=== PATIENT | female | born 1970 | race Caucasian/White ===

== ENCOUNTER 2022-09-23 01:20 | Day surgery (SDC) | payer BC, SELFPAY ==
[2022-09-16 11:15] VITALS: BMI 31.4
--- NOTE | 2022-09-22 14:45 | PM.HPGS ---
History of Present Illness History of Present Illness Consent: Risks, benefits, and alternatives have been discussed and questions answered. Patient agrees to proceed with procedure. Chief complaint: rivera syndrome, neoplasm screening Narrative: Enmanuel Mayers is a 52 year old female who has a family history of Rivera syndrome she is due for colonoscopy. her mother is 1 of 6 siblings. All but 1 of them has had cancer a serious organs including uterus, brain, and colon. Also, her maternal grandfather had colon. She has been diagnosed with Rivera syndrome. Review of Systems Review of Systems: All systems reviewed & are unremarkable except as noted in HPI and below PMFSH Past Medical History Medical History Asthma Rivera syndrome Social History Social History Smoking status: Never smoker Alcohol intake: current Substance use: never Substance use type: does not use Living arrangements: with family Spiritual care concerns: No Meds Home Medications and Allergies Home Medications Medication Instructions Recorded Confirmed Type Adults Multivitamin 1 gummy PO DAILY 09/16/22 09/23/22 History Daily Probiotic 1 cap PO DAILY 09/16/22 09/23/22 History [place] 3 Fish Oil 1 cap PO DAILY 09/16/22 09/23/22 History albuterol sulfate 90 mcg/actuation 2 puff inhalation QID PRN 09/16/22 09/23/22 History aerosol inhaler Shortness Of Breath Or Wheezing biotin 5,000 mcg sublingual tablet 5,000 mcg sublingual DAILY 09/16/22 09/23/22 History bupropion HCl 150 mg 24 hr tablet, 150 mg PO DAILY 09/16/22 09/23/22 History extended release escitalopram oxalate 20 mg tablet 30 mg PO DAILY 09/16/22 09/23/22 History estradiol 1 mg tablet 1 mg PO DAILY 09/16/22 09/23/22 History methylcellulose (laxative) 500 mg 1,000 mg PO DAILY 09/16/22 09/23/22 History tablet (Citrucel) rizatriptan 25 mg PO PRN PRN Migraine Headache 09/16/22 09/23/22 History Allergies Allergy/AdvReac Type Severity Reaction Status Date / Time No Known Allergies Allergy Verified 09/23/22 11:17 Exam Const: General: alert Orientation/consciousness: patient oriented x3 Resp: Auscultation: clear to auscultation bilaterally Cardio: Rhythm: regular rhythm GI: GI Palp: Yes Soft to palpation and No Tenderness to palpation present (GI) Neuro: General: patient oriented x3 Assessment and Plan Assessment and plan (1) Colon cancer screening: Code(s): Z12.11 - Encounter for screening for malignant neoplasm of colon Status: Acute Assessment and Plan: Colonoscopy with possible biopsy or polypectomy or cautery or injection of substances.
[2022-09-23 11:18] VITALS: BP 146/91; PULSE 62; RESP 16; TEMP 36.3; O2SAT 100
--- NOTE | 2022-09-23 11:21 | WPDANESEPPF ---
Anes - Initial Pre Proc Eval Procedure: Operation Date: 09/23/22 12:30 Proposed Procedures p Screening Colonoscopy - Mario Whitfield MD Date/Time: 09/23/22 11:21 Surgeon: Mario Whitfield MD Pre Op Diagnosis: rivera syndrome, neoplasm screening Patient Data Age: 52 Gender: F Height: 1.75 m Weight: 96.5 kg Allergies Allergy/AdvReac Type Severity Reaction Status Date / Time No Known Allergies Allergy Verified 09/23/22 11:17 Home Medications Medication Instructions Recorded Confirmed Type Adults Multivitamin 1 gummy PO DAILY 09/16/22 09/23/22 History Daily Probiotic 1 cap PO DAILY 09/16/22 09/23/22 History [place] 3 Fish Oil 1 cap PO DAILY 09/16/22 09/23/22 History albuterol sulfate 90 mcg/actuation 2 puff inhalation QID PRN 09/16/22 09/23/22 History aerosol inhaler Shortness Of Breath Or Wheezing biotin 5,000 mcg sublingual tablet 5,000 mcg sublingual DAILY 09/16/22 09/23/22 History bupropion HCl 150 mg 24 hr tablet, 150 mg PO DAILY 09/16/22 09/23/22 History extended release escitalopram oxalate 20 mg tablet 30 mg PO DAILY 09/16/22 09/23/22 History estradiol 1 mg tablet 1 mg PO DAILY 09/16/22 09/23/22 History methylcellulose (laxative) 500 mg 1,000 mg PO DAILY 09/16/22 09/23/22 History tablet (Citrucel) rizatriptan 25 mg PO PRN PRN Migraine Headache 09/16/22 09/23/22 History Patient hx anesthesia problems: none Family hx anesthesia problems: none Results Review: All pre-operative results and documents have been reviewed as part of the pre-operative evaluation. [facility] Past Medical History Medical History (Updated 09/23/22 @ 11:25 by Ricky Orourke DO) Asthma Rivera syndrome Social History Social History Smoking status: Never smoker Alcohol intake: current Substance use: never Substance use type: does not use Living arrangements: with family Spiritual care concerns: No Anes - Eval Final PreProcedure Day of Procedure 09/23/22 11:21 Patient weight: obese Heart: regular rate and rhythm Lungs: clear to auscultation Airway: Mallampati scale class II Neurological: alert and oriented Last oral intake: >/= 8 hours ASA classification: III Emergent: no Anesthetic plan: proceed Anesthesia type and monitoring: general GIVS and standard monitoring Results Review: All pre-operative results and documents have been reviewed as part of the pre-operative evaluation. Informed Consent: The patient's anesthetic plan and its attendant risks and benefits were discussed with the patient/family/POA. Questions were solicited and answers provided to the satisfaction of the patient/family/POA.
[2022-09-23] MEDS: LACTATED RINGERS 1,000 ML 150 ML IV CONT (11:30)
[2022-09-23 12:17] VITALS: BP 123/76; PULSE 77; RESP 16; O2SAT 100
[2022-09-23 12:27] VITALS: BP 124/85; PULSE 71; RESP 21; O2SAT 100
[2022-09-23 12:37] VITALS: BP 144/85; PULSE 73; RESP 15; O2SAT 99
== END 2022-09-23 12:44 | disposition home or self-care (01) ==
PROVIDERS: Visit Provider Internal Medicine Gastroenterology
PROC: 0DJD8ZZ Inspection of Lower Intestinal Tract, Via Natural or Artificial Opening Endoscopic (ICD-10-PCS; CPT 45378; principal; 2022-09-23 12:30)
DX: Z12.11 Encounter for screening for malignant neoplasm of colon (principal); K64.8 Other hemorrhoids; J45.909 Unspecified asthma, uncomplicated; Z15.09 Genetic susceptibility to other malignant neoplasm; E66.9 Obesity, unspecified; Z68.30 Body mass index [BMI] 30.0-30.9, adult; Z79.51 Long term (current) use of inhaled steroids
CPT/HCPCS: 45378; J2704; J7120

== ENCOUNTER 2024-11-15 00:43 | Day surgery (SDC) | payer OTHER, SELFPAY ==
[2024-11-07 13:00] VITALS: BMI 29.1
--- OUTSIDE RECORDS SUMMARY | 2024-11-15 00:46 | XMS_ITS | Clinical Summary ---
Author Organization [facility] Address [address] [place] [address] Phone Care Team Providers Care Caretaker Name Role Phone Celina Gomez DO Primary Care Provide r Allergies No known active allergies Medications escitalopram oxalate (LEXAPRO) 10 mg tablet Take 15 mg by mouth daily Pt has been taking 20mg daily due to increased stress. . Active loratadine (CLARITIN) 10 mg tablet Take 10 mg by mouth daily. Active Saccharomyces boulardii (FLORASTOR) 250 mg Capsule Take by mouth. Acti ve calcium-cholecalc iferol (OS-LORENA 500+D) 500 mg(1,250mg) -200 unit tablet Take 1 Tablet by mouth daily. Active multivitamin (DAILY-NIGEL) tablet Take 1 Tablet by mouth daily. Active omega-3 fatty acids-fish oil 300-1,000 mg Capsule Take by mouth daily. Active biotin 10 mg Tablet Take 5,000 mg by mouth daily. Active buPROPion HCl (WELLBUTRIN SR) 150 mg Sustained Release 12 hour tablet Take 150 mg by mouth 2 times daily. Active estradiol (ESTRACE) 1 mg tablet Take 1 mg by mouth daily. Active pramipexole (MIRAPEX) 0.125 mg Tablet Take 0.125 mg by mouth. Active rizatriptan (MAXALT) 10 mg Tablet Take 25 mg by mouth every 2 hours as needed for Migraine may repeat in 2 hours; max dose 30mg in 24 hours . Active albuterol (PROVENTIL,VENTOL IN) 0.63 mg/3 mL Solution for Nebulization Take 0.63 mg by inhalation one time only. Active hydrOXYzine HCl (ATARAX) 10 mg tablet Take 5 mg by mouth 3 times daily as needed for Itching. Active Active Problems Problem Noted Date Diagnosed Date Family history of hypertension in mother 017 Family history of non-Hodgkin's lymphoma 017 Overview (05/03/2017): Mother Family History Medical History Relation Name Comments Cancer Maternal Aunt joselyn brain cancer Colon Cancer Maternal Cousin ramon mcgill m et to liver. Cancer Maternal Grandmother Colon Cancer Maternal Grandmother late 50 's Cancer Maternal Uncle 1 Jose stomach can cer Colon Cancer Maternal Uncle 2 jd Cancer Maternal Uncle 3 sena lymphoma of the stomach Cancer Mother Leena NHL, and ovaria n or endometrial Hypertension Mother Leena Relation Name Status Comments Maternal Aunt joselyn Alive Maternal Cousin ramon mcgill Alive Maternal Grandmother Maternal Uncle 1 Jose Alive Maternal Uncle 2 jd Alive Maternal Uncle 3 sena Mother Leena Alive Social History Tobacco Use Types Packs/Day Years Used Date Smoking Tobacco: Never Smokeless Tobacco: Never Comments No Sex and Gender Information Value Date Recorded Sex Assigned at Not on file Legal Sex Female 10:22 AM CDT Gender Identity Not on file Sexual Orientation Not on file Last Filed Vital Signs Vital Sign Reading Time Taken Comments Blood Pressure 130/78 04/30/2019 4:44 PM CDT Pulse 86 04/30/2019 4:44 PM CDT Temperature - - Respiratory Rate - - Oxygen Saturation - - Inhaled Oxygen Concentration - - Weight 88.5 kg (195 lb) 04/30/2019 4:44 PM CDT Height 175.3 cm (5' 9 ) 04/30/2019 4:44 PM CDT Body Mass Index 28.8 04/30/2019 4:44 PM CDT Plan of Treatment Health Maintenance Due Date Last Done Comments HEPATITIS B VACCINES (1 of 3 - 19+ 3-dose series) 02/13/1991 COLORECTAL SCREENING 02/13/2017 Colorectal Cancer Screening 02/13/2017 FIT-DNA Q 3 years 02/13/2017 FIT/FOBT Q 1 year 02/13/2017 Flex Sig/CT Colonography Q 5 years 02/13/2017 ZOSTER VACCINE (1 of 2) 02/13/2022 BREAST CANCER SCREENING 06/28/2023 06/28/20 22, 06/01/2021, 04/04/2020, Additional history exists INFLUENZA VACCINE (#1) 2024 DTAP/TDAP/TD VACCINES (2 - T d or Tdap) 10/12/2029 10/13/2019 Procedures Procedure Name Priority Date/Time Associated Diagnosis Comments MAMMO 3D MIGUELINA SCREEN BILAT W OR WO CAD Routine 06/28/2022 4:22 PM FOREST ECONOMIST Encounter for screening mammogram for malignant neoplasm of breast from Last 3 Months or Most Recently Relevant to Health Maintenance Results * MAMMO SCRN BILAT 3D MIGUELINA W OR WO CAD (06/28/2022 4:22 PM FOREST ECONOMIST) Anatomical Region Laterality Modality Breast Bilateral Mammography 06/28/2022 4:23 PM FOREST ECONOMIST Impressions 06/30/2022 10:05 AM FOREST ECONOMIST IMPRESSION: No suspicious findings to suggest malignancy in either breast. Annual mammography is recommended. OVERALL FINAL ASSESSMENT: BI-RADS CATEGORY 1: Negative Narrative 06/30/2022 10:05 AM FOREST ECONOMIST BILATERAL SCREENING DIGITAL MAMMOGRAM WITH 3D TOMOSYNTHESIS AND CAD DATE: 06/28/2022 4:22 PM HISTORY: Routine screening. DICTATION LOCATION: [facility] TECHNIQUE: Full-field digital craniocaudal and mediolateral oblique projections of both breasts were obtained. Low-dose full-field digital breast tomosynthesis examination was performed with 2D and 3D acquisitions. Examination is read in conjunction with computer aided detection. COMPARISON: 06/01/2021 and older BREAST COMPOSITION: Almost entirely fat FINDINGS: No suspicious mass, suspicious microcalcifications, or architectural distortion is identified in either breast. Computer aided detection was used in the interpretation of this examination. Procedure Note Lesley Terry MD - 06/30/2022 BILATERAL SCREENING DIGITAL MAMMOGRAM WITH 3D TOMOSYNTHESIS AND CAD DATE: 06/28/2022 4:22 PM HISTORY: Routine screening. DICTATION LOCATION: [facility] TECHNIQUE: Full-field digital craniocaudal and mediolateral oblique projections of both breasts were obtained. Low-dose full-field digital breast tomosynthesis examination was performed with 2D and 3D acquisitions. Examination is read in conjunction with computer aided detection. COMPARISON: 06/01/2021 and older BREAST COMPOSITION: Almost entirely fat FINDINGS: No suspicious mass, suspicious microcalcifications, or architectural distortion is identified in either breast. Computer aided detection was used in the interpretation of this examination. IMPRESSION: No suspicious findings to suggest malignancy in either breast. Annual mammography is recommended. OVERALL FINAL ASSESSMENT: BI-RADS CATEGORY 1: Negative Celina Gomez DO MAMMO ORDERABLES Kayleen l Result from Last 3 Months or Most Recently Relevant to Health Maintenance Insurance BLUE PREFERRED [facility] BLUE ACCESS CHOICE Care Teams Caretaker Relationship Specialty [place] [id number] [address] [place] [id number] PCP - General Family Practice 03/05/20
--- OUTSIDE RECORDS SUMMARY | 2024-11-15 00:46 | XMS_ITS | Clinical Summary ---
Author Organization [facility] Address [address] [place] [address] Care Team Providers Care Hospital Intern Name Role Phone Unavailable Primary Care Provider Unavailabl e Social History Tobacco Use Types Packs/Day Years Used Date Smoking Tobacco: Never Assessed Comments Unknown Sex and Gender Information Value Date Recorded Sex Assigned at Not on file Legal Sex Female 8:01 AM CDT Gender Identity Not on file Sexual Orientation Not on file Last Filed Vital Signs Vital Sign Reading Time Taken Comments Blood Pressure 134/90 04/28/2016 9:49 AM CDT Pulse 60 04/28/2016 9:49 AM CDT Temperature - - Respiratory Rate - - Oxygen Saturation - - Inhaled Oxygen Concentration - - Weight 92.5 kg (204 lb) 12/15/2015 4:02 PM CDT Height 176.5 cm (5' 9.5 ) 12/15/2015 4:02 PM CDT Body Mass Index 29.69 12/15/2015 4:02 PM CDT Plan of Treatment Health Maintenance Due Date Last Done Comments Cervical Cancer Screening Pa p Smear (Age 30 to 64) Every 3 Years 1972 Colorectal Cancer Screening Colonoscopy (10 Years) 1972 Annual Physical 02/13/1975 Hepatitis C 02/13/1990 Hepatitis B Vaccines (1 of 3 - 19+ 3-dose series) 02/13/1991 Cervical Cancer Screening Pa p with HPV Testing (Age 30 to 64) Every 5 Years 02/13/2002 Cervical Cancer Screening with HPV 02/13/2002 Mammogram Screening 2012 Zoster Vaccines (1 of 2) 02/13/2022 COVID-19 Vaccine (2023-2 5 season) 2024 DTaP, Tdap and Td Vaccines ( 2 - Td or Tdap) 04/28/2026 04/28/2016 Meningococcal B Vaccine Aged Out No l onger eligible based on patient's age to complete this topic Meningococcal Vaccine Aged Out No brian mihir eligible based on patient's age to complete this topic Pneumococcal Vaccine: Pediat rics (0 to 5 Years) and At-Risk Patients (6 to 49 Years) Aged Out No longer eligi ble based on patient's age to complete this topic RSV Immunizations Under 20 Months Aged Out No longer eligible based on patient's age to complete this topic
--- OUTSIDE RECORDS SUMMARY | 2024-11-15 00:46 | XMS_ITS | Clinical Summary ---
Author Organization [facility] Address [address] [place] [address] Care Team Providers Care Air Brake Worker Name Role Phone Lilianawilliamevens Celina Maite SPICER Primary Care Provide r Allergies No known active allergies Medications albuterol 0.63 mg/3 mL nebulizer solution Inhale 0.63 mg once Active calcium carbonate-vitam in D3 1,250mg (500mg elemental) - 5 mcg (200 units) per tablet Take 1 tablet by mouth daily Active estradioL (ESTRACE) 1 mg tablet Take 1 mg by mouth daily Active hydrOXYzine (ATARAX) 10 mg tablet Take 5 mg by mouth every 8 hours as needed Active loratadine (CLARITIN) 10 mg tablet Take 10 mg by mouth daily Active multivitamin tablet Take 1 tablet by mouth daily Active omega-3 fatty acids-fish oil 300-1,000 mg capsule Take by mouth daily Active pramipexole (MIRAPEX) 0.125 mg tablet Take 0.125 mg by mouth Active rizatriptan (MAXALT) 10 mg tablet Take 25 mg by mouth every 2 hours as needed Active Saccharomyces boulardii (FLORASTOR) 250 mg capsule Take by mouth Active ibuprofen (ADVIL,MOTRIN) 800 mg tablet Take 800 mg by mouth 3 (three) times a day as needed 02/10/2022 Active buPROPion XL (WELLBUTRIN XL) 150 mg 24 hr tablet Take 150 mg by mouth daily 02/06/2022 Active escitalopram (LEXAPRO) 20 mg tablet TAKE 1.5 TABLETS BY MOUTH DAILY. 02/16/2022 Active Active Problems No known active problems Family History Medical History Relation Name Comments Hodgkin's lymphoma Mother Family hi story of Hodgkin's lymphoma - (Added by TW Conv) Relation Name Status Comments Mother Social History Tobacco Use Types Packs/Day Years Used Date Smoking Tobacco: Never Personal Safety Answer Date Recorded Getting School Help Needed Not on file 10/14 Comments Unknown Sex and Gender Information Value Date Recorded Sex Assigned at Not on file Legal Sex Female 12:40 PM NURSE BEH[facility]IORAL HEALTH CARE Gender Identity Not on file Sexual Orientation Not on file Obstetrics History Last Filed Vital Signs Vital Sign Reading Time Taken Comments Blood Pressure 142/82 09/10/2014 3:18 PM [facility] Pulse 63 09/10/2014 3:18 PM [facility] Temperature - - Respiratory Rate - - Oxygen Saturation - - Inhaled Oxygen Concentration - - Weight 85.3 kg (188 lb 0.1 oz) 04/08/2017 9:55 A M CDT Height 175.3 cm (5' 9 ) 04/08/2017 9:55 AM CDT Body Mass Index 27.76 04/08/2017 9:55 AM CDT Plan of Treatment Health Maintenance Due Date Last Done Comments Breast Cancer Screening-Mammogram 1972 Cervical Cancer Screening 1972 Colon Cancer Screening-Colonoscopy 1972 Depression Screening 1972 Hepatitis C Screening 1972 Hepatitis B Screening 02/13/1990 Regular Well Visit/Exam 18-64 02/13/1990 Zoster Vaccine (1 of 2) 02/13/2022 Covid-19 Vaccine (4 - 2023-2 5 season) 2024 08/28/2021, 12/25/2020, 11/27/2020 Influenza Vaccine (#1) 2024 DTaP/Tdap/Td Vaccine (2 - Td or Tdap) 10/12/2029 10/13/2019 Pneumococcal vaccine <65 Aged Out No longer eligible based on patient's age to complete this topic Insurance [place] [address] CHOICE PLUS [facility]/PPO Address: [place] [address] [facility] CHOICE [facility]US [facility] [address] Care Teams Air Brake Worker Relationship Specialty [place] [address] [facility] [address] [place] [address] PCP - General Family Medicine 06/18/20
--- OUTSIDE RECORDS SUMMARY | 2024-11-15 00:46 | XMS_ITS | Referral Summary ---
Author Organization [facility] Address [address] [place] [address] Care Team Providers Care Ship Laborer Name Role Phone Jason Celina Maite SPICER Primary Care Provide r [...] Active Active Problems No known active problems Social History Tobacco Use Types Packs/Day Years Used Date Smoking Tobacco: Never Personal Safety Answer Date Recorded Getting School Help Needed Not on file 10/14 Comments Unknown Sex and Gender Information Value Date Recorded Sex Assigned at Not on file Legal Sex Female 12:40 PM ACADEMIC HOSPITALIST Gender Identity Not on file Sexual Orientation Not on file Last Filed Vital Signs Vital Sign Reading Time Taken Comments Blood Pressure 142/82 09/10/2014 3:18 PM ACADEMIC HOSPITALIST Pulse 63 09/10/2014 3:18 PM ACADEMIC HOSPITALIST Temperature - - Respiratory Rate - - Oxygen Saturation - - Inhaled Oxygen Concentration - - Weight 85.3 kg (188 lb 0.1 oz) 04/08/2017 9:55 A M CDT Height 175.3 cm (5' 9 ) 04/08/2017 9:55 AM CDT Body Mass Index 27.76 04/08/2017 9:55 AM CDT Plan of Treatment Not on file Insurance CHOICE PLUS [facility] H[facility]/PPO Address: [facility] [address] [place] [address] CHOICE PLUS [facility] H[facility]/PP[facility] Address: [address] [address] [place] [address] Care Teams Ship Laborer Relationship Specialty [place] [address] [address] PCP - General Family Medicine 06/18/20
--- OUTSIDE RECORDS SUMMARY | 2024-11-15 00:46 | XMS_ITS | Clinical Summary ---
Author Organization [facility] Address [address] [place] [address] Care Team Providers Care Earth Boring Machine Operator Name Role Phone Unavailable Primary Care Provider Unavailabl e Source Comments [facility],non-owned Affiliates and Associated Physician Practices is amultiple site organization consisting of ambulatory clinics and hospital sitesin [place], [place], [place] and [place]. This disclosure is being madepursuant to the Care Everywhere program and may not contain all information available regarding this patient. Last updated 18.[facility] Social History Tobacco Use Types Packs/Day Years Used Date Smoking Tobacco: Never Assessed Comments Unknown Sex and Gender Information Value Date Recorded Sex Assigned at Not on file Legal Sex Female 10:16 PM CERTIFIED INDOOR ENVIRONMENTALIST Gender Identity Not on file Sexual Orientation Not on file Plan of Treatment Health Maintenance Due Date Last Done Comments COLOGUARD (AGES 45-75) - COL ON CA SCREENING 1972 COLON MONITORING 1972 COLONOSCOPY - COLON CA SCREENING 1972 CT COLONOGRAPHY - COLON CA SCREENING 1972 Colorectal Cancer Screening 1972 FIT - COLON CA SCREENING 1972 FLEX SIG - COLON CA SCREENING 1972 LIPID TESTING 1972 MAMMOGRAM 1972 PAP SMEAR 1972 HIV SCREENING 02/13/1987 HEPATITIS C SCREENING 02/09/1990 DTAP/TDAP/TD VACCINES (1 - Tdap) 02/13/1991 HEPATITIS B VACCINE (1 of 3 - 19+ 3-dose series) 02/13/1991 PNEUMOCOCCAL VACCINE 50+ (1 of 1 - PCV) 02/13/2022 ZOSTER VACCINE (1 of 2) 02/13/2022 COVID-19 VACCINE (1 - 2023-2 5 season) 2024 DEPRESSION SCREENING 08/01/2024 INFLUENZA VACCINE (Season Ended) 2025 HIB VACCINE Aged Out No longer eligi ble based on patient's age to complete this topic HPV VACCINE Aged Out No longer eligi ble based on patient's age to complete this topic MENINGOCOCCAL (Group B) VACC INE SHARED DECISION-MAKING Aged Out No longer eligibl e based on patient's age to complete this topic MENINGOCOCCAL GROUPS A/C/Y/W VACCINE Aged Out No longer eligible b ased on patient's age to complete this topic PNEUMOCOCCAL VACCINE Aged Out No long er eligible based on patient's age to complete this topic Insurance ANTHEM ANTHEM
[2024-11-15 09:42] VITALS: BP 118/83; PULSE 55; RESP 18; TEMP 36.3; O2SAT 100
[2024-11-15] MEDS: LACTATED RINGERS 1,000 ML 150 ML IV CONT (09:54)
--- NOTE | 2024-11-15 09:58 | P.PNAN_ITS ---
Anes - Initial Pre Proc Eval Procedure: Operation Date: 11/15/24 11:00 Proposed Procedures p Screening Colonoscopy - Sky Valderrama MD Date/Time: 11/15/24 09:58 Surgeon: Sky Valderrama MD Pre Op Diagnosis: Screening Patient Data Age: 54 Gender: F Height: 1.75 m Weight: 87.6 kg Last Vital Signs Temp 36.3 C L 11/15/24 09:42 Pulse 55 L 11/15/24 09:42 Resp 18 11/15/24 09:42 BP 118/83 11/15/24 09:42 Pulse Ox 100 11/15/24 09:42 O2 Del Method Room Air 11/15/24 09:42 Allergies Allergy/AdvReac Type Severity Reaction Status Date / Time No Known Allergies Allergy Verified 11/15/24 09:39 Home Medications ?Medication ?Instructions ?Recorded ?Confirmed ?Type Adults Multivitamin 1 gummy PO DAILY 09/16/22 11/15/24 History Daily Probiotic 1 cap PO DAILY 09/16/22 11/07/24 History [place] 3 Fish Oil 1 cap PO DAILY 09/16/22 11/07/24 History albuterol sulfate 90 mcg/actuation 2 puff inhalation QID PRN 09/16/22 11/07/24 History aerosol inhaler Shortness Of Breath Or Wheezing biotin 5,000 mcg sublingual tablet 5,000 mcg sublingual DAILY 09/16/22 11/07/24 History bupropion HCl 150 mg 24 hr tablet, 150 mg PO DAILY 09/16/22 11/15/24 History extended release escitalopram oxalate 20 mg tablet 30 mg PO DAILY 09/16/22 11/15/24 History estradiol 1 mg tablet 1 mg PO DAILY 09/16/22 11/07/24 History methylcellulose (laxative) 500 mg 1,000 mg PO DAILY 09/16/22 11/07/24 History tablet (Citrucel) rizatriptan 25 mg PO PRN PRN Migraine Headache 09/16/22 11/07/24 History hydrocortisone 2.5 % topical cream 1 applic RECTAL HS PRN hemorrhoids 09/23/22 11/07/24 Rx with perineal applicator #30 grams (Proctozone-HC) cholecalciferol (vitamin D3) 125 125 mcg PO DAILY 11/07/24 11/15/24 History mcg (5,000 unit) tablet (Vitamin D3) lisinopril 10 1 tablet PO DAILY 11/07/24 11/15/24 History mg-hydrochlorothiazide 12.5 mg tablet semaglutide 1 mg/dose (4 mg/3 mL) 1 mg subcut WEEKLY 11/07/24 11/07/24 History subcutaneous pen injector (Ozempic) Patient hx anesthesia problems: none Family hx anesthesia problems: none Results Review: All pre-operative results and documents have been reviewed as part of the pre- operative evaluation. PMFSH Past Medical History Medical History Sampson syndrome Asthma Surgical History Surgical History (Updated 11/15/24 @ 09:59 by Gil Olivera MD) H/O colonoscopy H/O: hysterectomy Social History Social History Smoking status: Never smoker Alcohol intake: current Drinks per week: 1 Alcohol use details: socially Substance use: never Substance use type: does not use Living arrangements: with family Spiritual care concerns: No Anes - Eval Final PreProcedure Day of Procedure 11/15/24 09:58 Patient weight: overweight Heart: regular rate and rhythm Lungs: clear to auscultation Airway: Mallampati scale class II Neurological: alert and oriented Last oral intake: >/= 8 hours ASA classification: II Emergent: no Anesthetic plan: proceed Anesthesia type and monitoring: general GIVS and standard monitoring Results Review: All pre-operative results and documents have been reviewed as part of the pre- operative evaluation. Informed Consent: The patient's anesthetic plan and its attendant risks and benefits were discussed with the patient/family/POA. Questions were solicited and answers p rovided to the satisfaction of the patient/family/POA.
--- NOTE | 2024-11-15 10:42 | P.HP_ITS ---
H&P: HPI History of Present Illness Date/Time: 11/15/24 10:42 Chief Complaint: Sampson syndrome Narrative: this patient has been diagnosed with Sampson syndrome with PMS mutation. Several of her family members have had cancer, 3 uncles had colon cancer and some other causes have had colon cancer as well. Her last colonoscopy was 3 years ago, reportedly 0 polyps. Review of Systems Review of Systems: All systems reviewed & are unremarkable except as noted in HPI and below PMFSH Past Medical History Medical History Sampson syndrome Asthma Surgical History Surgical History (Updated 11/15/24 @ 09:59 by Gil Olivera MD) H/O colonoscopy H/O: hysterectomy Social History Social History Smoking status: Never smoker Alcohol intake: current Drinks per week: 1 Alcohol use details: socially Substance use: never Substance use type: does not use Living arrangements: with family Spiritual care concerns: No Meds Home Medications and Allergies Home Medications ?Medication ?Instructions ?Recorded ?Confirmed ?Type Adults Multivitamin 1 gummy PO DAILY 09/16/22 11/15/24 History Daily Probiotic 1 cap PO DAILY 09/16/22 11/07/24 History [place] 3 Fish Oil 1 cap PO DAILY 09/16/22 11/07/24 History albuterol sulfate 90 mcg/actuation 2 puff inhalation QID PRN 09/16/22 11/07/24 History aerosol inhaler Shortness Of Breath Or Wheezing biotin 5,000 mcg sublingual tablet 5,000 mcg sublingual DAILY 09/16/22 11/07/24 History bupropion HCl 150 mg 24 hr tablet, 150 mg PO DAILY 09/16/22 11/15/24 History extended release escitalopram oxalate 20 mg tablet 30 mg PO DAILY 09/16/22 11/15/24 History estradiol 1 mg tablet 1 mg PO DAILY 09/16/22 11/07/24 History methylcellulose (laxative) 500 mg 1,000 mg PO DAILY 09/16/22 11/07/24 History tablet (Citrucel) rizatriptan 25 mg PO PRN PRN Migraine Headache 09/16/22 11/07/24 History hydrocortisone 2.5 % topical cream 1 applic RECTAL HS PRN hemorrhoids 09/23/22 11/07/24 Rx with perineal applicator #30 grams (Proctozone-HC) cholecalciferol (vitamin D3) 125 125 mcg PO DAILY 11/07/24 11/15/24 History mcg (5,000 unit) tablet (Vitamin D3) lisinopril 10 1 tablet PO DAILY 11/07/24 11/15/24 History mg-hydrochlorothiazide 12.5 mg tablet semaglutide 1 mg/dose (4 mg/3 mL) 1 mg subcut WEEKLY 11/07/24 11/15/24 History subcutaneous pen injector (Ozempic) Allergies Allergy/AdvReac Type Severity Reaction Status Date / Time No Known Allergies Allergy Verified 11/15/24 09:39 Vital Signs Vital Signs - 24 hr 11/15/24 09:42 Temperature 97.4 F L Pulse Rate 55 L Respiratory Rate 18 Blood Pressure 118/83 Pulse Oximetry 100 Oxygen Delivery Room Air Exam Const: General: cooperative and healthy appearing Resp: Effort & Inspection: normal respiratory effort and able to speak in complete sentences Auscultation: clear to auscultation bilaterally Cardio: Rate: regular rate Rhythm: regular rhythm GI: Inspection: normal to inspection GI Palp: No No hepatosplenomegaly present Auscultation: normal bowel sounds Rectal Exam: deferred Skin: General skin exam: normal color Psych: Appearance: grossly normal Mental Status: mental status grossly normal Assessment and Plan Assessment and plan (1) Colon cancer screening: Code(s): Z12.11 - Encounter for screening for malignant neoplasm of colon Status: Acute Assessment and Plan: The patient is deemed a good candidate for the procedure. Consent signed. Will proceed.
[2024-11-15 10:59] VITALS: BP 115/82; PULSE 80; RESP 22; O2SAT 98
[2024-11-15 11:09] VITALS: BP 122/82; PULSE 77; RESP 14; O2SAT 100
[2024-11-15 11:19] VITALS: BP 121/82; PULSE 68; RESP 14; O2SAT 100
== END 2024-11-15 11:28 | disposition home or self-care (01) ==
PROVIDERS: Referring Provider Internal Medicine Gastroenterology; Visit Provider Internal Medicine Gastroenterology
PROC: 0DJD8ZZ Inspection of Lower Intestinal Tract, Via Natural or Artificial Opening Endoscopic (ICD-10-PCS; CPT 45378; principal; 2024-11-15 11:00)
DX: Z12.11 Encounter for screening for malignant neoplasm of colon (principal); K64.8 Other hemorrhoids; Z80.0 Family history of malignant neoplasm of digestive organs; Z15.09 Genetic susceptibility to other malignant neoplasm
CPT/HCPCS: 45378; J2704; J7120